=== PATIENT | male | born 1990 | race Caucasian/White ===

== ENCOUNTER 2023-08-07 14:29 | Emergency (ER) | payer SELFPAY ==
[~2023-08-07] VITALS: Ht 172.7 cm; Wt 61.2 kg
[~2023-08-07 14:29] MED LIST: NAPROXEN500 MG PO
[2023-08-07 14:35] VITALS: BP 106/69
[2023-08-07 14:46] LABS: BASO% 0.5 % (0-3); EOS% 1.1 % (0-8); HEMATOCRIT 43.7 % (39.0-50.0); HEMOGLOBIN 14.8 g/dl (14.0-18.0); IMMATURE GRANULOCYTES 0.2 % (0.0-5.0); LYMPH% 15.6 % (15-41); MEAN CELL VOLUME 96.5 fL CALC (80.0-100.0); MEAN CORPUSCULAR HGB 32.7 pG CALC (26.0-32.0); MEAN CORPUSCULAR HGB CONC 33.9 g/dL CAL (32.0-36.0); MONO% 7.6 % (2-13); NEUT# 4.15 thou/uL (1.82-7.42); RED BLOOD COUNT 4.53 mill/uL (4.70-6.10); RED CELL DISTRI WIDTH 12.1 % (11.5-15.5)
[2023-08-07 15:00] VITALS: BP 93/76
[2023-08-07 15:05] LABS: ALBUMIN 4.5 g/dL (3.2-5.0); ALKALINE PHOSPHATASE 56 u/l (38-126); BILIRUBIN, TOTAL 1.1 mg/dL (0.2-1.3); BUN 17 mg/dL (9-20); BUN/CREATININE RATIO 22 (12-20 (CALC)); CARBON DIOXIDE 35 mmol/l (22-30); CHLORIDE 97 mmol/l (95-108); CREATININE 0.8 mg/dL (0.7-1.3); GFR FOR AFR.AMER. > 60 ML/MIN (>=60 (CALC)); GFR OTHER RACES > 60 ML/MIN (>=60 (CALC)); LIPASE 51 u/l (23-300); SGOT/AST 50 u/l (17-59); SODIUM 139 mmol/l (137-146); TOTAL PROTEIN 7.5 g/dL (6.3-8.2)
[2023-08-07 15:06] LABS: ANION GAP 12 (6-22 (CALC)); POTASSIUM 4.6 mmol/l (3.5-5.1)
[2023-08-07 15:08] LABS: URINE BILIRUBIN - DIPSTICK Negative (NEGATIVE); URINE BLOOD DIPSTICK Negative (NEGATIVE); URINE GLUCOSE - DIPSTICK Negative (NEGATIVE); URINE KETONE Trace mg/dL (NEGATIVE); URINE LEUK ESTERASE Negative (NEGATIVE); URINE NITRITE - DIPSTICK Negative (Negative); URINE PH 5.5 (4.5-8.0); URINE PROTEIN - DIPSTICK 100 mg/dL (NEG-TRACE); URINE SPECIFIC GRAVITY >=1.030; URINE UROBILINOGEN - DIPSTICK 0.2 E.U./dL (0.2)
[2023-08-07 15:09] LABS: URINE COLOR Yellow
[2023-08-07 15:20] LABS: URINE MUCUS RARE hpf (NONE-FEW)
[2023-08-07 16:34] VITALS: BP 93/76
== END 2023-08-07 16:40 | disposition home or self-care (01) | DRG 392 ==
LOC: ED 14:29
PROVIDERS: Family Medicine
DX: R10.32 Left lower quadrant pain (principal); R11.2 Nausea with vomiting, unspecified

== ENCOUNTER 2023-08-08 22:13 | Emergency (ER) | payer SELFPAY ==
[~2023-08-08] VITALS: Ht 172.7 cm; Wt 59.0 kg
[2023-08-08 22:21] VITALS: BP 115/76
[2023-08-08 22:57] LABS: BASO% 0.4 % (0-3); EOS% 2.9 % (0-8); HEMATOCRIT 38.5 % (39.0-50.0); MEAN CELL VOLUME 97.5 fL CALC (80.0-100.0); MEAN CORPUSCULAR HGB 32.4 pG CALC (26.0-32.0); MEAN CORPUSCULAR HGB CONC 33.2 g/dL CAL (32.0-36.0); MONO% 16.4 % (2-13); NEUT# 1.94 thou/uL (1.82-7.42); NEUT% 40.3 % (42-76); RED BLOOD COUNT 3.95 mill/uL (4.70-6.10); RED CELL DISTRI WIDTH 12.3 % (11.5-15.5)
[2023-08-08 22:59] LABS: HEMOGLOBIN 12.8 g/dl (14.0-18.0)
[2023-08-08 23:00] VITALS: BP 102/72
[2023-08-08 23:11] LABS: ALBUMIN 4.1 g/dL (3.2-5.0); ALKALINE PHOSPHATASE 45 u/l (38-126); ANION GAP 11 (6-22 (CALC)); BILIRUBIN, TOTAL 0.9 mg/dL (0.2-1.3); BUN 16 mg/dL (9-20); BUN/CREATININE RATIO 21 (12-20 (CALC)); CARBON DIOXIDE 32 mmol/l (22-30); CHLORIDE 101 mmol/l (95-108); CREATININE 0.8 mg/dL (0.7-1.3); GFR FOR AFR.AMER. > 60 ML/MIN (>=60 (CALC)); GFR OTHER RACES > 60 ML/MIN (>=60 (CALC)); POTASSIUM 4.6 mmol/l (3.5-5.1); SGOT/AST 57 u/l (17-59); SODIUM 139 mmol/l (137-146); TOTAL PROTEIN 6.7 g/dL (6.3-8.2)
[2023-08-09] MEDS ORDERED: IMODIUM2 MG PO (00:28)
[2023-08-09 00:38] VITALS: BP 102/72
== END 2023-08-09 01:02 | disposition home or self-care (01) | DRG 392 ==
LOC: ED 22:13
PROVIDERS: Family Medicine
DX: A08.39 Other viral enteritis (principal); Z20.822 Contact with and (suspected) exposure to COVID-19

== ENCOUNTER 2024-07-08 18:30 | Emergency (ER) | payer SELFPAY ==
[~2024-07-08] VITALS: Ht 172.7 cm; Wt 61.2 kg
[~2024-07-08 18:30] MED LIST changes: +IMODIUM2 MG PO
[2024-07-08 18:43] VITALS: BP 120/78
[2024-07-08 19:00] VITALS: BP 101/74
[2024-07-08 19:30] VITALS: BP 97/65
[2024-07-08 20:00] VITALS: BP 94/60
[2024-07-08 20:30] VITALS: BP 95/59
[2024-07-08 20:40] VITALS: BP 95/59
== END 2024-07-08 20:46 | disposition home or self-care (01) | DRG 605 ==
LOC: ED 18:30
DX: S50.12XA Contusion of left forearm, initial encounter (principal); W22.8XXA Striking against or struck by other objects, initial encounter; Y92.89 Other specified places as the place of occurrence of the external cause; Y99.0 Civilian activity done for income or pay

== ENCOUNTER 2024-09-17 20:36 | Emergency (ER) | payer SELFPAY ==
[~2024-09-17] VITALS: Ht 172.7 cm; Wt 64.0 kg
[2024-09-17 21:32] VITALS: BP 108/68
[2024-09-17] MEDS ORDERED: IPRATROPIUM-Albuterol 0.5MG-2.5MG/3 ML NEB ONE (21:40)
[2024-09-17] MEDS ORDERED: guaiFENesin-CODEINE 200-20 MG/10 ML UDC PO ONE (21:40)
[2024-09-17 21:45] VITALS: BP 112/69
[2024-09-17 21:55] LABS: BASO% 0.1 % (0-3); EOS% 2.2 % (0-8); HEMATOCRIT 37.8 % (39.0-50.0); HEMOGLOBIN 12.7 g/dl (14.0-18.0); IMMATURE GRANULOCYTES 0.1 % (0.0-5.0); LYMPH% 13.6 % (15-41); MEAN CELL VOLUME 94.7 fL CALC (80.0-100.0); MEAN CORPUSCULAR HGB 31.8 pG CALC (26.0-32.0); MEAN CORPUSCULAR HGB CONC 33.6 g/dL CAL (32.0-36.0); MONO% 11.7 % (2-13); NEUT# 4.96 thou/uL (1.82-7.42); NEUT% 72.3 % (42-76); RED BLOOD COUNT 3.99 mill/uL (4.70-6.10); RED CELL DISTRI WIDTH 12.1 % (11.5-15.5)
[2024-09-17 22:00] VITALS: BP 107/59
[2024-09-17 22:30] VITALS: BP 132/82
[2024-09-17 22:47] VITALS: BP 132/82
== END 2024-09-17 22:47 | disposition home or self-care (01) | DRG 153 ==
LOC: ED 20:36
PROVIDERS: Family Medicine
DX: J06.9 Acute upper respiratory infection, unspecified (principal); Z20.822 Contact with and (suspected) exposure to COVID-19